=== PATIENT | male | born 1945 | race Caucasian/White ===

== ENCOUNTER 2017-06-25 10:44 | Inpatient (IN) | payer OTHER, MEDICARE ==
--- NOTE | 2017-06-25 10:40 | EDPHY ---
H & P Constitutional: Initial Vital Signs Temperature (C) 36.6 C 06/25/17 10:49 Heart Rate 100 06/25/17 10:49 Respiratory Rate 20 06/25/17 10:49 Blood Pressure 121/71 H 06/25/17 10:49 O2 Sat (%) 95 06/25/17 10:49 O2 Delivery Mode Room Air Allergies/Adverse Reactions: peanut [Peanut] Allergy (Severe, Verified 01/05/13 15:38) Anaphylaxis Shellfish *RETIRED-08/02/12 [Shellfish] Allergy (Severe, Verified 01/05/13 15:37 ) Anaphylaxis Home Medications: Medication Instructions Recorded Albuterol [Proventil Inhaler HFA 2 puffs IH BID PRN 03/17/12 (*)] Aspirin [Aspirin 81mg (*)] 81 mg PO DAILY 03/17/12 Glucosam/Chondr/Collagn/Hyalur 1 each PO DAILY 03/17/12 [Glucosamine & Chondroitin Cap] Losartan/Hctz 50/12.5 [Hyzaar 2 tab PO DAILY 03/17/12 50/12.5MG (*)] Lysine [l-Lysine] 500 mg PO DAILY 03/17/12 Multivitamins [Multivitamin (*)] 1 each PO DAILY 03/17/12 Omeprazole [Prilosec 20 mg] 20 mg PO DAILY 03/17/12 Pharmacy Completed 03/17/12 03/17/12 Ubidecarenone [Co Q10] 60 mg PO DAILY 03/17/12 Medical Decision Making ED Course/Re-evaluation: CHIEF COMPLAINT: Weakness, dizziness, hypotension. HISTORY OF PRESENT ILLNESS: The patient is a 72-year-old male who presents via EMS for hypotension, weakness, and lightheadedness. He reports that he was recently put on Amlodipine and took doses Thursday, Thursday, and Thursday and then fainted around 8pm Thursday. He was too weak and lightheaded to get up and was on the floor for 10 hours. Since then he has been unable to get off of his couch due to weakness, dizziness, and confusion. He admits associated hematuria. His blood pressure for EMS was 90/60. He denies recent sickness, fever, vomiting, diarrhea, or other complaints. REVIEW OF SYSTEMS: A 10 point review of systems was performed and is negative with the exception of the elements mentioned in the history of present illness. PHYSICAL EXAM: HR, BP, O2 Sat, RR. Temp noted General Appearance: Alert, well hydrated, appropriate, and non-toxic appearing. Head: Atraumatic without scalp tenderness or obvious injury Eyes: Pupils equal, round, reactive to light and accommodation, EOMI, no trauma , no injection. Ears: Clear bilaterally, no perforation, normal landmarks Nose: Atraumatic, no rhinorrhea, clear. Throat: There is no erythema or exudates, no lesions, normal tonsils, mucus membranes moist. Neck: Supple, 2+ carotid upstroke, nontender, no lymphadenopathy. Respiratory: No retractions, no distress, no wheezes, and no accessory muscle use. Lungs are clear to auscultation bilaterally. Cardiovascular: Regular rate and rhythm, no murmurs, rubs, or gallops. Bilateral carotid, radial, dorsalis pedis, and posterior tibial pulses intact. Good capillary refill all extremities. Gastrointestinal: Abdomen is soft, nontender, non-distended, no masses, no rebound, no guarding, no peritoneal signs. Musculoskeletal: Normal active ROM of all extremities, atraumatic. Neurological: Alert, appropriate, and interactive. The patient has normal DTRs and non-focal cranial nerves, motor, sensory, and cerebellar exam. Skin: No rashes, good turgor, no nodules on palpation. Past medical history: Hypertension. Past surgical history: Family history: N/A. Social history: Lives at home alone. DIAGNOSTICS/PROCEDURES/CRITICAL CARE TIME: I spent a total of 40 minutes of critical care time including but not limited to obtaining history, performing a physical exam, ordering interventions and the bedside monitoring of those interventions, collecting and interpreting tests and discussion with consultants but not including time spent performing procedures. DIFFERENTIAL DIAGNOSIS: The differential diagnosis for the patient's dizziness included but was not limited to peripheral and central causes of vertigo, orthostatic causes including dehydration, cardiogenic and neurogenic causes, and blood loss. MEDICAL DECISION MAKIN-year-old male with a history of hypertension presents for 4 days of weakness , confusion, and lightheadedness. He took 3 doses of Amlodipine this weekend and then passed out for 10 hours on his floor. He has been too weak to move from his cough since then. I am concerned for CVA, cerebellar infarct, rhabdomyolysis, or possible BPV. An IV was established and labs ordered including cardiac enzymes and CK. Brain MRI without contrast ordered to rule out intracranial process. 1L IV saline administered for hydration. I reviewed the patient's laboratory studies. Creatinine is markedly elevated at 5.9, indicating renal failure secondary to rhabdomyolysis. CK elevated at 2950. Hospitalist and test fixture designer paged. 1152: Reassessed patient. Discussed results of workup so far and answered all of his questions. 1159: Consulted with Dr. Pitts, hospitalist. He accepts admission. 1202: Consulted with Dr. Horne, nephrology. Critical Care Time: I spent a total of 40 minutes of critical care time including but not limited to obtaining history, performing a physical exam, ordering interventions and the bedside monitoring of those interventions, collecting and interpreting tests and discussion with consultants but not including time spent performing procedures. - Data Points Laboratory Results: Laboratory Results 06/25/17 10:55 06/25/17 10:55 06/25/17 06/25/17 06/25/17 11:00 10:55 10:55 WBC RBC Hgb Hct MCV MCH MCHC RDW Plt Count MPV Neut % (Auto) Lymph % (Auto) Avery % (Auto) Eos % (Auto) Baso % (Auto) Nucleat RBC Rel Count Absolute Neuts (auto) Absolute Lymphs (auto) Absolute Monos (auto) Absolute Eos (auto) Absolute Basos (auto) Absolute Nucleated RBC Immature Gran % Immature Gran # Sodium 137 mEq/L mEq/L (134-144) Potassium 3.1 mEq/L L mEq/L (3.5-5.2) Chloride 102 mEq/L mEq/L (97-110) Carbon Dioxide 17 mEq/l L mEq/l (22-31) Anion Gap 18 mEq/L H mEq/L (8-16) BUN 87 mg/dL H mg/dL (7-23) Creatinine 5.9 mg/dL H mg/dL (0.7-1.3) Estimated GFR 10 Glucose 126 mg/dL H mg/dL (70-100) Calcium 9.7 mg/dL mg/dL (8.5-10.4) Magnesium 1.7 mg/dL mg/dL (1.6-2.3) Total Bilirubin 3.4 mg/dL H mg/dL (0.1-1.4) Conjugated Bilirubin 2.2 mg/dL H mg/dL (0.0-0.5) Unconjugated Bilirubin 1.2 mg/dL H mg/dL (0.0-1.1) AST 180 IU/L H IU/L (17-59) ALT 80 IU/L H IU/L (21-72) Alkaline Phosphatase 186 IU/L H IU/L (38-126) Creatine Kinase 2950 IU/L H IU/L (0-224) CK-MB (CK-2) Fraction 3.92 ng/mL H ng/mL (0-3.19) CK-MB (CK-2) % 0.1 % % (0.0-4.0) Creatine Kinase Interp NEGATIVE (NEGATIVE) Troponin I < 0.012 ng/mL ng/mL (0-0.034) Total Protein 7.7 g/dL g/dL (6.3-8.2) Albumin 3.2 g/dL L g/dL (3.5-5.0) Lipase 1938.0 IU/L H IU/L (23-300) Hep Bs Antigen Pending Hep Bs Antibody Pending Hepatitis C Antibody Pending 06/25/17 10:55 WBC 11.69 10^3/uL H 10^3/uL (3.80-9.50) RBC 4.01 10^6/uL L 10^6/uL (4.40-6.38) Hgb 14.0 g/dL g/dL (13.7-17.5) Hct 38.8 % L % (40.0-51.0) MCV 96.8 fL fL (81.5-99.8) MCH 34.9 pg H pg (27.9-34.1) MCHC 36.1 g/dL g/dL (32.4-36.7) RDW 15.1 % % (11.5-15.2) Plt Count 146 10^3/uL L 10^3/uL (150-400) MPV 12.3 fL H fL (8.7-11.7) Neut % (Auto) 79.8 % H % (39.3-74.2) Lymph % (Auto) 9.5 % L % (15.0-45.0) Avery % (Auto) 5.0 % % (4.5-13.0) Eos % (Auto) 4.1 % % (0.6-7.6) Baso % (Auto) 0.7 % % (0.3-1.7) Nucleat RBC Rel Count 0.0 % % (0.0-0.2) Absolute Neuts (auto) 9.33 10^3/uL H 10^3/uL (1.70-6.50) Absolute Lymphs (auto) 1.11 10^3/uL 10^3/uL (1.00-3.00) Absolute Monos (auto) 0.59 10^3/uL 10^3/uL (0.30-0.80) Absolute Eos (auto) 0.48 10^3/uL H 10^3/uL (0.03-0.40) Absolute Basos (auto) 0.08 10^3/uL 10^3/uL (0.02-0.10) Absolute Nucleated RBC 0.00 10^3/uL 10^3/uL (0-0.01) Immature Gran % 0.9 % % (0.0-1.1) Immature Gran # 0.10 10^3/uL 10^3/uL (0.00-0.10) Sodium Potassium Chloride Carbon Dioxide Anion Gap BUN Creatinine Estimated GFR Glucose Calcium Magnesium Total Bilirubin Conjugated Bilirubin Unconjugated Bilirubin AST ALT Alkaline Phosphatase Creatine Kinase CK-MB (CK-2) Fraction CK-MB (CK-2) % Creatine Kinase Interp Troponin I Total Protein Albumin Lipase Hep Bs Antigen Hep Bs Antibody Hepatitis C Antibody Medications Given: Discontinued Medications Sodium Chloride (Ns) 1,000 mls @ 0 mls/hr IV ONCE ONE; Wide Open PRN Reason: Protocol Stop: 06/25/17 10:53 Last Admin: 06/25/17 11:05 Dose: 1,000 mls Departure - Departure Disposition: [facility] Acute Clinical Impression: Kidney failure Qualifiers: Renal failure chronicity: acute Acute renal failure type: unspecified Qualified Code(s): N17.9 - Acute kidney failure, unspecified Rhabdomyolysis Qualifiers: Rhabdomyolysis type: non-traumatic Qualified Code(s): M62.82 - Rhabdomyolysis Condition: Fair Report Scribed for: Garret Hollingsworth Report Scribed by: Pravin Benjamin Date of Report: 06/25/17 Time of Report: 10:50
[2017-06-25] MEDS ORDERED: NS 1,000 ML IV ONE (10:52)
[2017-06-25 11:09] LABS: % IMMATURE GRANULYOCYTES 0.9 % (0.0-1.1); ADD DIFF? NO; ADD MORPH? NO; ADD SCAN? NO; ATYPICAL LYMPHOCYTE FLAG 20 (0-99); FRAGMENT RBC FLAG 0 (0-99); HEMATOCRIT 38.8 % (40.0-51.0); LEFT SHIFT FLG 20 (0-99); LIPEMIA HEMOLYSIS FLAG 90 (0-99); MEAN CELL HEMOGLOBIN 34.9 pg (27.9-34.1); MEAN CELL HEMOGLOBIN CONCENTR. 36.1 g/dL (32.4-36.7); MEAN CELL VOLUME 96.8 fL (81.5-99.8); MEAN PLATELET VOLUME 12.3 fL (8.7-11.7); PLATELET CLUMPS FLAG 0 (0-99); PLATELET COUNT 146 10^3/uL (150-400); RED BLOOD CELL COUNT 4.01 10^6/uL (4.40-6.38); RED CELL DISTRIBUTION WIDTH 15.1 % (11.5-15.2)
[2017-06-25 11:23] LABS: ANION GAP 18 mEq/L (8-16); CALCIUM 9.7 mg/dL (8.5-10.4); CARBON DIOXIDE 17 mEq/l (22-31); CHLORIDE 102 mEq/L (97-110); CREATININE 5.9 mg/dL (0.7-1.3); GLOMERULAR FILTRATION RATE 10; GLUCOSE 126 mg/dL (70-100); MAGNESIUM 1.7 mg/dL (1.6-2.3); POTASSIUM 3.1 mEq/L (3.5-5.2); SODIUM 137 mEq/L (134-144)
[2017-06-25 11:31] LABS: TROPONIN I < 0.012 ng/mL (0-0.034)
[2017-06-25 11:53] LABS: CK-MB INTERPRETATION NEGATIVE (NEGATIVE); CREATINE KINASE-MB FRACTION 3.92 ng/mL (0-3.19)
[2017-06-25 11:58] LABS: ALBUMIN 3.2 g/dL (3.5-5.0); BILIRUBIN,TOTAL 3.4 mg/dL (0.1-1.4); BILIRUBIN-CONJUGATED 2.2 mg/dL (0.0-0.5); BILIRUBIN-UNCONJUGATED 1.2 mg/dL (0.0-1.1); TOTAL PROTEIN 7.7 g/dL (6.3-8.2)
[2017-06-25] MEDS ORDERED: ONDANSETRON 4 MG/2 ML VIAL ONE (12:59)
[2017-06-25 14:04] LABS: HEPATITIS B SURFACE ANTIBODY NEGATIVE (NEGATIVE)
[2017-06-25] MEDS ORDERED: ONDANSETRON 4 MG/2 ML VIAL IVP PRN (14:11)
[2017-06-25] MEDS ORDERED: ACETAMINOPHEN 325 MG TAB PO PRN (14:11)
[2017-06-25] MEDS ORDERED: ZOLPIDEM TARTRATE 5 MG TAB PO PRN (14:11)
--- NOTE | 2017-06-25 14:28 | PDGENHP ---
History and Physical History and Physical: HISTORY AND PHYSICAL CC: Weak unable to stand and walk HISTORY: this man comes into the emergency room today complaining of being too weak to stand or walk. He states that 6 days ago he started taking some Norvasc for blood pressure in addition to other blood pressure medicines. 4 days ago he says he had a fall and landed on the floor was unable to get up from the floor and stayed approximately 10 hours on the floor. This is a hard floor without carpet. He eventually crawled to a couch where he spent almost the entirety of the last 4 days. He has had little to eat or drink. He does admit to some pain at his left shoulder and his left hip as well as lumbar back but no radicular sound neuropathic pain. He says he is unable to stand or walk and mostly it sounds like this is due to weakness, and is difficult to determine whether the pain he has in his hip or back has anything to do with his inability to walk. He denies any fever symptoms, shortness of breath, chest pain, headache, confusion, Nausea vomiting or diarrhea. Denies abdominal pain Notably on review of the patient's chart he is been an alcoholic in the past. He had quit drinking and was sober although was admitted here in 2011 after drinking a significant amount of wine and essentially passing out. at this time he tells me he has not had any alcohol for a few months ROS: A comprehensive 10 system review revealed no other significant findings PAST MEDICAL HISTORY: alcoholism Syncope reactive airway disease hypertension Rheumatic fever as a child 1 episode of acute kidney failure it sounds like it was probably mild but it did not have details FAMILY MEDICAL HISTORY: he denies any significant family history SOCIAL HISTORY: he lives in [facility] He lives by himself in a private house. He is no longer to his who was with him when he was here 5 years ago MEDICATIONS: The patients list has been reconciled by our clinical pharmacist in the EMR. I have reviewed the list and ordered appropriate medicines. PHYSICAL EXAMINATION: Vital Signs: normal without fever, however he has borderline orthostatic blood pressure changes Advertising Copywriter: sinus rhythm Examination: General: alert, oriented, good mentation, relaxed Skin: warm, dry, slight pallor, no rash HEENT: normal Neck: no mass or jvd Resps: relaxed Lungs: clear breath sounds Heart: regular, no murmur Abdomen: soft, nondistended, nontender, +BS, no mass Upper Extremities: some decreased range of motion of left shoulder due to pain , with no bruising or effusion or inflammation there, otherwise normal Lower Extremities: also some decreased range of motion of the left hip due to pain but no other findings there, otherwise no edema, warm No Bleeding or bruising Neurologic: normal speech/language, 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 These labs were also normal when last measured in 2011 potassium 3.1 RADIOLOGY STUDIES: abdominal ultrasound, I was present will this study was being done and did review the images tech and have reviewed the radiology report: Gallstones are present but no signs of cholecystitis or biliary obstruction are seen. There is some evidence of hepatitis. There is no evidence of hydronephrosis though there is some thinning of the renal cortices. Left hip x-ray, my review of image and interpretation: No evidence of fracture or other acute abnormality Left shoulder x-ray my review of images and interpretation: no evidence of fracture or other acute abnormality 12 LEAD EKG: ASSESSMENT: # profound weakness unable to stand or walk # acute renal failure, uncertain etiology, likely due to rhabdomyolysis but also likely some hemodynamic compromise # acute rhabdomyolysis from lying on the floor for prolonged. # ?acute pancreatitis however there is no pain or tenderness, question possible alcohol abuse; it is possible that he has an elevated lipase due to his acute renal disease and not pancreatitis He does have gallstones which could also be a cause of pancreatitis ( at present he is denying recent alcohol use) # hepatitis, question possible alcohol related with AST greater than ALT, ( at present he is denying recent alcohol use) # multiple painful sites after a recent fall to the floor 4 days ago, including left shoulder, left hip, with no fracture seen on x-rays # known history of alcoholism with patient currently stating no alcohol for months. PLANS: -Dr. Jamie Lawton has been consulted to see the patient from nephrology -aggressive IV hydration -will hold his diuretics and Amilcar inhibitors for now -avoid any nephrotoxins -renal diet, avoid potassium supplements and magnesium -fall risk precautions -physical occupational therapy -DVT prophylaxis -will not be able to image pancreas with CT at this time -will give thiamin I have reviewed the patient's case in detail with Dr. SOLIS I have reviewed the patient's past medical records as part of this assessment, including previous hospitalization records here as well as outpatient laboratory studies
[2017-06-25] MEDS ORDERED: ALBUTEROL 60 PUFFS/8 GM MDI IH PRN (16:13)
[2017-06-25 18:17] LABS: ALBUMIN 2.9 g/dL (3.5-5.0); ANION GAP 18 mEq/L (8-16); CALCIUM 8.7 mg/dL (8.5-10.4); CARBON DIOXIDE 11 mEq/l (22-31); CHLORIDE 109 mEq/L (97-110); CREATININE 4.8 mg/dL (0.7-1.3); GLOMERULAR FILTRATION RATE 12; GLUCOSE 118 mg/dL (70-100); POTASSIUM 3.7 mEq/L (3.5-5.2); SODIUM 138 mEq/L (134-144)
[2017-06-25 19:47] LABS: EOSMR EOSINOPHILS FEW EOS (NO EOS SEEN); EOSMR EPITHELIAL CELLS NO EPITH CELLS SEEN; EOSMR PMNS MODERATE PMN CELLS; EOSMR RBCS MANY RBCS
--- NOTE | 2017-06-25 20:07 | GCON ---
[f rep st] CONSULTATION DATE OF CONSULTATION: 06/25/2017 REASON FOR CONSULTATION: Opinion regarding acute kidney injury. HISTORY OF PRESENT ILLNESS: Patient is a very pleasant, 72-year-old gentleman with no prior history of kidney disease, serum creatinine dating back to 2011 was 0.8. Patient has a known history of hyp ertension and has been on losartan with hydrochlorothiazide 100/25, for about 10-15 years. Patient saw his primary care physician, Dr. Burton, last week. His blood pressures have been high a nd was started on, he believes, amlodipine 5 mg daily. The 1st day he was little bit dizzy, on the 2 nd day, it was worse, the 3rd day he could barely move and fell and laid on his floor for about 12 h ours. He has been on the couch for 3 days subsequently with weakness and fatigue. He did continue to take his losartan with hydrochlorothiazide. He presents to the emergency department today feeling fairly terrible. He has not been having fevers , chills, nausea, vomiting, chest pain, shortness of breath, cough, sputum, hemoptysis, hematemesis, epistaxis, abdominal pain, diarrhea, melena, hematochezia, gross hematuria, or dysuria. He does not use nonsteroidal anti-inflammatory drugs. PAST MEDICAL HISTORY: Significant for: 1. Hypertension for 10 or 15 years. 2. History of gastrointestinal bleed due to Celebrex therapy. 3. Multiple back surgeries. 4. Osteoarthritis. 5. Gastroesophageal reflux disease. ALLERGIES: None. MEDICATIONS: Include: 1. Losartan with hydrochlorothiazide 100/25. 2. Omeprazole 20 mg a day. 3. Recently amlodipine 5 mg was added. He has not taken that since Thursday. FAMILY HISTORY: Negative for renal disease and diabetes, positive for hypertension. SOCIAL HISTORY: He is a . He has no children or pets and does not use tobacco. Stopped drink ing alcohol several months ago. No IV or recreational drugs. REVIEW OF SYSTEMS: A complete 12-point review of systems was performed with pertinent positives and negatives as per the previous sections. PHYSICAL EXAMINATION: VITAL SIGNS: Blood pressure in the emergency department is 121/71, pulse 100, respirations 20, temp 36.6 degrees, weight 84 kg. GENERALLY: He is awake, alert, but feels weak. HE ENT: Pupils are reactive to light. Extraocular movements are intact. Mucous membranes are dry. NECK: No lymphadenopathy or thyromegaly. HEART: Regular. No rub. No S3. LUNGS: No rales, rhonchi or wheez es. ABDOMEN: Bowel sounds are positive. Soft, nontender, nondistended. No obvious organomegaly, mass es or bruits. EXTREMITIES: No edema, cyanosis or clubbing. NEUROLOGIC: No asterixis. SKIN: No unusua l rashes. LYMPH: No palpable lymphadenopathy. MUSCULOSKELETAL: No effusions or tenderness. LABORATORY: Serum sodium is 137, potassium 3.1, chloride 102, CO2 17, BUN 87, creatinine 5.9, gluco se 126, calcium 9.7, magnesium 1.7. WBC 11.7, hemoglobin 14, hematocrit 39, platelet count 146,000, AST 180, ALT 80, CK 2950, albumin 3.2, lipase is elevated at 1938. IMPRESSION: 1. Acute kidney injury. This is likely due to a combination of hypotension, volume depletion and rh abdomyolysis. 2. Rhabdomyolysis CK, 3 days after he got off the floor was still almost 3000. 3. Mild hypokalemia. 4. Mild metabolic acidosis. 5. History of alcohol use/abuse. 6. Elevated lipase. RECOMMENDATIONS: 1. Continue his IV fluids with normal saline at 150 mL/hour. 2. Follow his CPK levels. 3. Follow his renal function. 4. There are no urgent indications for dialysis at this time. 5. We did discuss dialysis with its attendant risks, and benefits, all questions were answered to h is satisfaction. He would proceed if necessary. 6. We will check an ultrasound of his retroperitoneum. His lipase is elevated and had some kidney f ailure. Would make sure he does not have an obstruction. Thank you for allowing me to participate in the care of your patient. If there are any questions, pl ease do not hesitate to contact us. We will be following along with you. /[id number]/MODL
[2017-06-25] MEDS ORDERED: NS 500 ML IV ONE (20:11)
[2017-06-25 20:42] LABS: % IMMATURE GRANULYOCYTES 0.8 % (0.0-1.1); ABSOLUTE IMMATURE GRANULOCYTES 0.08 10^3/uL (0.00-0.10); ADD DIFF? NO; ADD MORPH? NO; ADD SCAN? NO; ATYPICAL LYMPHOCYTE FLAG 10 (0-99); FRAGMENT RBC FLAG 0 (0-99); HEMOGLOBIN 12.5 g/dL (13.7-17.5); LEFT SHIFT FLG 20 (0-99); LIPEMIA HEMOLYSIS FLAG 90 (0-99); MEAN CELL HEMOGLOBIN 35.2 pg (27.9-34.1); MEAN CELL HEMOGLOBIN CONCENTR. 36.8 g/dL (32.4-36.7); MEAN CELL VOLUME 95.8 fL (81.5-99.8); MEAN PLATELET VOLUME 12.7 fL (8.7-11.7); PLATELET CLUMPS FLAG 0 (0-99); PLATELET COUNT 123 10^3/uL (150-400); RED BLOOD CELL COUNT 3.55 10^6/uL (4.40-6.38)
[2017-06-25 20:53] LABS: COLOR YELLOW; LEUKOCYTE ESTERASE,URINE NEGATIVE (NEGATIVE); NITRITE,URINE NEGATIVE (NEGATIVE)
[2017-06-25 21:05] LABS: MUCUS TRACE /lpf (NONE-1+); RBC,URINE 15-25 /hpf (0-3)
[2017-06-25] MEDS: HEPARIN 5,000 UNIT/0.5 ML SYR SC SCH (21:41)
[2017-06-25] MEDS ORDERED: ERTAPENEM 0.5 GM in NS 50 ML IV ONE (22:17)
[2017-06-25] MEDS: NS 1,000 ML IV SCH (22:21)
--- NOTE | 2017-06-25 22:25 | HOSPPROG ---
Hospitalist Progress Note Assessment/Plan: Called with sepsis trigger, temp 100.5, HR 110's. CT abd/pelvis without contrast did not reveal significant inflammation to suggest pancreatitis as source of his low grade fever and tachycardia. Bolused 500 cc's NS. Repeated labs. PCT 4.2, Lactate 2.8. UA has wbc's and rbc's. CXR pending. -Will obtain UCx, BCx and give dose of Ertapenem tonight as his imaging doesn 't seem to support pancreatitis as a source of his SIRS, ?UTI Objective: Vital Signs Temp Pulse Resp BP Pulse Ox 38.1 C 109 H 16 120/67 91 L 06/25/17 19:32 06/25/17 19:32 06/25/17 19:32 06/25/17 19:32 06/25/17 19:32 Laboratory Results 06/25/17 20:25 06/25/17 17:35 06/24/17 06/25/17 06/26/17 05:59 05:59 05:59 Intake Total 1900 Output Total 200 Balance 1700 ICD10 Worksheet Patient Problems: Problems Problem Status Onset Kidney failure Acute Rhabdomyolysis Acute
[2017-06-26 05:19] LABS: % IMMATURE GRANULYOCYTES 0.9 % (0.0-1.1); ABSOLUTE IMMATURE GRANULOCYTES 0.06 10^3/uL (0.00-0.10); ADD DIFF? NO; ADD MORPH? NO; ADD SCAN? NO; ATYPICAL LYMPHOCYTE FLAG 20 (0-99); FRAGMENT RBC FLAG 0 (0-99); HEMOGLOBIN 11.4 g/dL (13.7-17.5); LEFT SHIFT FLG 20 (0-99); LIPEMIA HEMOLYSIS FLAG 90 (0-99); MEAN CELL HEMOGLOBIN 34.5 pg (27.9-34.1); MEAN CELL HEMOGLOBIN CONCENTR. 35.6 g/dL (32.4-36.7); MEAN PLATELET VOLUME 12.4 fL (8.7-11.7); PLATELET CLUMPS FLAG 10 (0-99); PLATELET COUNT 103 10^3/uL (150-400); RED CELL DISTRIBUTION WIDTH 15.2 % (11.5-15.2)
[2017-06-26] MEDS: NS 1,000 ML IV SCH (05:38)
[2017-06-26] MEDS: HEPARIN 5,000 UNIT/0.5 ML SYR SC SCH ×3 (05:38→21:49)
[2017-06-26 05:39] LABS: ALANINE AMINOTRANSFERASE 63 IU/L (21-72); ALBUMIN 2.2 g/dL (3.5-5.0); ALKALINE PHOSPHATASE 136 IU/L (38-126); ANION GAP 10 mEq/L (8-16); ASPARTATE AMINOTRANSFERASE 101 IU/L (17-59); BILIRUBIN,TOTAL 2.6 mg/dL (0.1-1.4); BILIRUBIN-CONJUGATED 1.6 mg/dL (0.0-0.5); CALCIUM 8.3 mg/dL (8.5-10.4); CARBON DIOXIDE 17 mEq/l (22-31); CHLORIDE 109 mEq/L (97-110); CREATININE 3.6 mg/dL (0.7-1.3); GLOMERULAR FILTRATION RATE 17; GLUCOSE 108 mg/dL (70-100); POTASSIUM 2.8 mEq/L (3.5-5.2); SODIUM 136 mEq/L (134-144); TOTAL PROTEIN 5.7 g/dL (6.3-8.2)
[2017-06-26 06:29] LABS: CK-MB INTERPRETATION NEGATIVE (NEGATIVE); CREATINE KINASE-MB FRACTION 1.98 ng/mL (0-3.19)
[2017-06-26] MEDS ORDERED: POTASSIUM CL 20 MEQ TAB PO ONE ×3 (06:38→14:17)
[2017-06-26] MEDS ORDERED: POTASSIUM CL 20 MEQ TAB PO SCH (06:45)
[2017-06-26] MEDS ORDERED: NON-FORMULARY NEW DRUG (Omeprazole [Prilosec 20 Mg] 20 MG) PO SCH (09:00)
--- NOTE | 2017-06-26 09:14 | HOSPPROG ---
Hospitalist Progress Note Assessment/Plan: DIAGNOSES: # profound weakness unable to stand or walk # acute renal failure, uncertain etiology, likely due to rhabdomyolysis but also likely some hemodynamic compromise # acute rhabdomyolysis from lying on the floor for prolonged time # ?acute pancreatitis however there is no pain or tenderness, question possible alcohol abuse; it is possible that he has an elevated lipase due to his acute renal disease and not pancreatitis He does have gallstones which could also be a cause of pancreatitis ( at present he is denying recent alcohol use) # hepatitis, question possible alcohol related with AST greater than ALT, ( at present he is denying recent alcohol use) # multiple painful sites after a recent fall to the floor 4 days ago, including left shoulder, left hip, with no fracture seen on x-rays # known history of alcoholism with patient currently stating no alcohol for past few months. PLANS: -continue IV hydration -Follow renal function closely -continue low-fat diet as tolerated -continue empiric antibiotics for the moment with cultures pending -DVT prophylaxis -fall risk precautions and physical occupational therapy SUBJECTIVE: States he feels better today No abdominal pain or nausea No chills or sweats this morning Slight cough but not short of breath and no chest pain OBJECTIVE Vitals reviewed: Fever to 38.1 last evening has currently resolved, some tachycardia with the fever has resolved, blood pressure is slightly low this morning Exam: alert oriented skin warm dry color ok resps not labored lungs clear BSs heart regular abd soft nondistended nontender, bowel sounds present limbs warm, no edema iv site ok Laboratory data: Some improvement in renal function, bilirubin and transaminases, and lipase Potassium low at 2.7 I reviewed the chest x-ray images from last night, my personal reading: Normal single-view chest x-ray I reviewed the CT scan images from last night, abdomen, my personal reading: Objective: Vital Signs Temp Pulse Resp BP Pulse Ox 36.7 C 81 16 93/49 L 97 06/26/17 07:37 06/26/17 07:37 06/26/17 07:37 06/26/17 07:37 06/26/17 07:37 Laboratory Results 06/26/17 05:02 06/26/17 05:02 06/25/17 06/26/17 06/27/17 06:59 06:59 06:59 Intake Total 3900 Output Total 800 Balance 3100 ICD10 Worksheet Patient Problems: Problems Problem Status Onset Kidney failure Acute Rhabdomyolysis Acute
[2017-06-26] MEDS: PANTOPRAZOLE SODIUM 40 MG TAB PO SCH (09:48)
[2017-06-26] MEDS: THIAMINE HCL 100 MG TAB PO SCH (09:48)
--- NOTE | 2017-06-26 11:28 | SOAPPROG ---
SOAP Progress Note Assessment/Plan: Assessment/Plan: NETTA: likely from hypotension, volume depletion and rhabdomyolysis, Cr down with IVFs from 5.9 to 3.6 in one day. - No need for dialysis. - Continue IVFs. - Will continue to monitor. - Avoid nephrotoxins and hypotension. Hypokalemia: K 2.8 this am, got KCl 40meq x1. Will recheck this afternoon as he will likely need further replacement. Metabolic acidosis: CO2 17, will continue to monitor, expect it will improve with IVFs and improvement in renal function. Subjective: No acute events overnight. Pt states he feels better, more energy, more alert. He states he is breathing comfortably, not having any swelling, denies pain. Objective: Vital Signs Temp Pulse Resp BP Pulse Ox 36.6 C 79 20 95/84 H 97 06/26/17 11:14 06/26/17 11:14 06/26/17 11:14 06/26/17 11:14 06/26/17 11:14 Laboratory Results 06/26/17 05:02 06/26/17 05:02 06/25/17 06/26/17 06/27/17 05:59 05:59 05:59 Intake Total 3900 Output Total 800 Balance 3100 General: alert and oriented, no acute distress Eyes; EOMI, PERRL OP: Clear CV: RRR Resp: CTA bilat, nonlabored respirations on NC Abd; SOft, NT Ext: no edema BLE Neuro: CN II-XII grossly intact, no asterixis Psych: cooperative, appropriate mood and affect ICD10 Worksheet Patient Problems: Problems Problem Status Onset Kidney failure Acute Rhabdomyolysis Acute
[2017-06-26 13:45] LABS: ALBUMIN 2.6 g/dL (3.5-5.0); ANION GAP 12 mEq/L (8-16); CALCIUM 8.5 mg/dL (8.5-10.4); CARBON DIOXIDE 17 mEq/l (22-31); CHLORIDE 108 mEq/L (97-110); CREATININE 3.1 mg/dL (0.7-1.3); GLOMERULAR FILTRATION RATE 20; GLUCOSE 117 mg/dL (70-100); POTASSIUM 2.8 mEq/L (3.5-5.2); SODIUM 137 mEq/L (134-144)
[2017-06-26 18:46] LABS: ALBUMIN 2.5 g/dL (3.5-5.0); ANION GAP 12 mEq/L (8-16); CALCIUM 8.4 mg/dL (8.5-10.4); CARBON DIOXIDE 17 mEq/l (22-31); CHLORIDE 111 mEq/L (97-110); CREATININE 2.7 mg/dL (0.7-1.3); GLOMERULAR FILTRATION RATE 23; GLUCOSE 111 mg/dL (70-100); POTASSIUM 3.3 mEq/L (3.5-5.2); SODIUM 140 mEq/L (134-144)
[2017-06-26] MEDS: ALBUTEROL 200 PUFFS/18 GM MDI IH PRN (21:31)
[2017-06-26] MEDS ORDERED: POTASSIUM CL 10 MEQ TAB PO ONE (23:15)
[2017-06-27] MEDS: NS 1,000 ML IV SCH ×3 (00:46→15:52)
[2017-06-27 05:51] LABS: % IMMATURE GRANULYOCYTES 1.5 % (0.0-1.1); ABSOLUTE IMMATURE GRANULOCYTES 0.09 10^3/uL (0.00-0.10); ADD DIFF? NO; ADD MORPH? NO; ADD SCAN? NO; ATYPICAL LYMPHOCYTE FLAG 30 (0-99); FRAGMENT RBC FLAG 0 (0-99); HEMATOCRIT 32.7 % (40.0-51.0); HEMOGLOBIN 11.6 g/dL (13.7-17.5); LEFT SHIFT FLG 10 (0-99); LIPEMIA HEMOLYSIS FLAG 90 (0-99); MEAN CELL HEMOGLOBIN 34.9 pg (27.9-34.1); MEAN CELL HEMOGLOBIN CONCENTR. 35.5 g/dL (32.4-36.7); MEAN CELL VOLUME 98.5 fL (81.5-99.8); MEAN PLATELET VOLUME 12.3 fL (8.7-11.7); PLATELET CLUMPS FLAG 0 (0-99); PLATELET COUNT 121 10^3/uL (150-400); RED BLOOD CELL COUNT 3.32 10^6/uL (4.40-6.38); RED CELL DISTRIBUTION WIDTH 15.7 % (11.5-15.2)
[2017-06-27] MEDS: HEPARIN 5,000 UNIT/0.5 ML SYR SC SCH ×3 (06:08→21:12)
[2017-06-27 06:14] LABS: ALBUMIN 2.2 g/dL (3.5-5.0); ANION GAP 11 mEq/L (8-16); CALCIUM 8.4 mg/dL (8.5-10.4); CARBON DIOXIDE 16 mEq/l (22-31); CHLORIDE 114 mEq/L (97-110); CREATININE 2.1 mg/dL (0.7-1.3); GLOMERULAR FILTRATION RATE 31; GLUCOSE 89 mg/dL (70-100); POTASSIUM 3.4 mEq/L (3.5-5.2); SODIUM 141 mEq/L (134-144)
[2017-06-27] MEDS: THIAMINE HCL 100 MG TAB PO SCH (08:06)
[2017-06-27] MEDS: PANTOPRAZOLE SODIUM 40 MG TAB PO SCH (08:06)
[2017-06-27] MEDS ORDERED: POTASSIUM CL 20 MEQ/15 ML UDCUP PO ONE (12:27)
--- NOTE | 2017-06-27 12:32 | SOAPPROG ---
SOAP Progress Note Assessment/Plan: Assessment: 1. NETTA: likely from hypotension, volume depletion and rhabdomyolysis -Cr improving rapidly with IVFs - No need for dialysis. - Continue IVFs. Will lower rate to 75cc/hr and likely can d/c tomorrow as he has good PO intake - Avoid nephrotoxins and hypotension. 2. Hypokalemia: Improving with replacement, got 80mEq yesterday, will give 20mEq now 3. Metabolic acidosis: CO2 16, may be partly driven by NETTA but also from NS. Should improve as NETTA further resolves and can stop NS IVF Plan: 06/27/17 12:25 06/27/17 12:32 06/27/17 12:35 Subjective: Feels well. Notes good appetite and improving UOP. Objective: Vital Signs Temp Pulse Resp BP Pulse Ox 36.8 C 93 16 106/58 L 97 06/27/17 11:18 06/27/17 11:18 06/27/17 11:18 06/27/17 11:18 06/27/17 11:18 Microbiology 06/25/17 15:30 Urine Culture - Final Urine,Clean Catch One [place] Type Laboratory Results 06/27/17 05:04 06/27/17 05:04 06/26/17 06/27/17 06/28/17 05:59 05:59 05:59 Intake Total 3900 2750 1356 Output Total 800 300 600 Balance 3100 2450 756 ICD10 Worksheet Patient Problems: Problems Problem Status Onset Kidney failure Acute Rhabdomyolysis Acute
--- NOTE | 2017-06-27 16:50 | HOSPPROG ---
Hospitalist Progress Note Assessment/Plan: DIAGNOSES: # profound weakness unable to stand or walk due to abnormalities listed below # acute renal failure, likely due to rhabdomyolysis and hemodynamic compromise # acute rhabdomyolysis from lying on the floor for prolonged time # ?acute pancreatitis however there is no pain or tenderness, question possible alcohol abuse; it is possible that he has an elevated lipase due to his acute renal disease and not pancreatitis He does have gallstones which could also be a cause of pancreatitis ( at present he is denying recent alcohol use) # elevation of transaminases may been related to his rhabdomyolysis # multiple painful sites after a recent fall to the floor 4 days ago, including left shoulder, left hip, with no fracture seen on x-rays these are all resolving nicely # orthostatic hypotension persists despite ongoing IV hydration. Given his fall at home and no hypertension here would not resume his blood pressure medicines at home until follow-up with primary care doctor and he may not need them at this point all # fever and high procalcitonin at admission or of uncertain etiology. There is no infectious focus identified in cultures have remained negative. # known history of alcoholism with patient currently stating no alcohol for past few months. PLANS: -continue IV hydration; continue off Norvasc -Follow renal function closely -continue low-fat diet as tolerated - will stop antibiotics at this time and follow without -DVT prophylaxis -fall risk precautions and physical occupational therapy Disposition: Anticipate discharge tomorrow will be reasonable SUBJECTIVE: feels better overall, eating better, better strength and is ambulating somewhat now OBJECTIVE Vitals reviewed: no recurrent fever last 36 hours Vital signs at rest are very stable but he does still have some orthostatic vital sign changes Exam: alert oriented skin warm dry color ok resps not labored lungs clear BSs heart regular abd soft nondistended nontender, bowel sounds present limbs warm, no edema iv site ok Objective: Vital Signs Temp Pulse Resp BP Pulse Ox 36.6 C 106 H 20 107/73 96 06/27/17 15:10 06/27/17 15:10 06/27/17 15:10 06/27/17 15:10 06/27/17 15:10 Microbiology 06/25/17 15:30 Urine Culture - Final Urine,Clean Catch One [place] Type Laboratory Results 06/27/17 05:04 06/27/17 05:04 06/26/17 06/27/17 06/28/17 06:59 06:59 06:59 Intake Total 3900 3506 600 Output Total 929 260 4312 Balance 3100 3206 -400 ICD10 Worksheet Patient Problems: Problems Problem Status Onset Kidney failure Acute Rhabdomyolysis Acute
[2017-06-28] MEDS: HEPARIN 5,000 UNIT/0.5 ML SYR SC SCH (05:18)
[2017-06-28] MEDS: NS 1,000 ML IV SCH (05:22)
[2017-06-28 06:09] LABS: % IMMATURE GRANULYOCYTES 1.5 % (0.0-1.1); ABSOLUTE IMMATURE GRANULOCYTES 0.09 10^3/uL (0.00-0.10); ADD DIFF? NO; ADD MORPH? NO; ADD SCAN? NO; ATYPICAL LYMPHOCYTE FLAG 0 (0-99); FRAGMENT RBC FLAG 0 (0-99); HEMATOCRIT 31.1 % (40.0-51.0); LEFT SHIFT FLG 10 (0-99); LIPEMIA HEMOLYSIS FLAG 90 (0-99); MEAN CELL HEMOGLOBIN 35.1 pg (27.9-34.1); MEAN CELL HEMOGLOBIN CONCENTR. 35.4 g/dL (32.4-36.7); MEAN CELL VOLUME 99.4 fL (81.5-99.8); MEAN PLATELET VOLUME 12.2 fL (8.7-11.7); PLATELET CLUMPS FLAG 0 (0-99); PLATELET COUNT 126 10^3/uL (150-400); RED BLOOD CELL COUNT 3.13 10^6/uL (4.40-6.38); RED CELL DISTRIBUTION WIDTH 15.9 % (11.5-15.2)
[2017-06-28 06:23] LABS: ALBUMIN 2.2 g/dL (3.5-5.0); ANION GAP 9 mEq/L (8-16); CALCIUM 8.4 mg/dL (8.5-10.4); CARBON DIOXIDE 17 mEq/l (22-31); CHLORIDE 115 mEq/L (97-110); CREATININE 1.4 mg/dL (0.7-1.3); GLOMERULAR FILTRATION RATE 50; GLUCOSE 100 mg/dL (70-100); POTASSIUM 3.5 mEq/L (3.5-5.2); SODIUM 141 mEq/L (134-144)
[2017-06-28] MEDS: PANTOPRAZOLE SODIUM 40 MG TAB PO SCH (09:15)
[2017-06-28] MEDS: THIAMINE HCL 100 MG TAB PO SCH (09:15)
[2017-06-28] MEDS: ALBUTEROL 200 PUFFS/18 GM MDI IH PRN (09:21)
--- NOTE | 2017-06-28 11:03 | PDIAF ---
- Diagnosis Code Status: Full Code - Medication Management Discharge Medications: Medications to Continue on Transfer Albuterol [Proventil Inhaler HFA (*)] 2 puffs IH BID PRN 03/17/12 [Last Taken Unknown] Omeprazole [Prilosec 20 mg] 20 mg PO DAILY 03/17/12 [Last Taken 03/16/12] Baicalin/Catechin [Limbrel 500 mg Capsule] 500 mg PO BID 06/25/17 [Last Taken Unknown] Acetaminophen [Tylenol 325mg (*)] 650 mg PO Q4HRS PRN #0 tab 06/28/17 [Last Taken Unknown] Pediatric Np Antibiotics: n/a Discharge Medications: Refer to the Discharge Home Medication list for PRN reason. PICC Care - Routine: N/A - Orders Services needed: Registered Nurse, Master Client Hr Manager, Physical Therapy Home Care Face to Face: done 06/28/2017 Radha Eckert MD Oxygen: 1L night time use only (but lives in [place], so may need additional eval Diet Recommendation: no restrictions on diet Diet Texture: Regular Texture Diet Genao: Not applicable Activity/Weight Bearing Restrictions: per PT recommendations - Labs/Radiology BMP Date: 06/29/17 (call to Dr Richard Crooks/[facility]) - Follow Up Care Current Providers and Referrals: NONE *PRIMARY CARE P,. [Primary Care Provider] - As per Instructions Leann Burton MD [Doctor of Osteopathy] - 1-2 days Miky Palomino MD [Medical Doctor] - follow up in 2 weeks
[2017-06-28 11:27] LABS: % SATURATION 58 % (20-55); TOTAL IRON BINDING CAPACITY 139 ug/dL (260-490)
[2017-06-28 11:53] VITALS: BP 124/66; PULSE 86; RESP 16; TEMP 97.7; O2SAT 95
== END 2017-06-28 13:56 | disposition home health service (06) | DRG 683 ==
LOC: EDUNIT# → F3E 14:22
PROVIDERS: ADMIT Internal Medicine; ATTEND Family Medicine
DX: N17.9 Acute kidney failure, unspecified (principal); M62.82 Rhabdomyolysis; E86.9 Volume depletion, unspecified; I95.1 Orthostatic hypotension; R53.1 Weakness; E87.6 Hypokalemia; E87.2 Acidosis; I10 Essential (primary) hypertension; J45.909 Unspecified asthma, uncomplicated; F10.21 Alcohol dependence, in remission
CPT/HCPCS: 97110-GP; 97116-GP; 97161-GP; 97166-GO; 97530-GO; 97535-GO; G0472; G8978-GP-CJ; G8979-GP-CI; G8987-GO-CI; G8987-GO-CJ; G8988-GO-CH; G8989-GO-CH; J1335; J2405

== ENCOUNTER 2017-08-05 07:04 | Observation (INO) | payer OTHER, MEDICARE ==
[2017-08-05] MEDS ORDERED: LIDOCAINE 1% 2 ML INJ ID PRN (07:48)
[2017-08-05] MEDS ORDERED: NS 1,000 ML IV ONE (07:48)
--- NOTE | 2017-08-05 08:13 | PDANEPAE ---
ANE History of Present Illness 72 year old male presents for cholecystectomy. ANE Past Medical History - Cardiovascular History Hx Hypertension: Yes Hx Arrhythmias: No Hx Chest Pain: No Hx Coronary Artery / Peripheral Vascular Disease: No Hx CHF / Valvular Disease: No Hx Palpitations: No Cardiovascular History Comment: Losartan/HCTZ cut in half - Pulmonary History Hx COPD: No Hx Asthma/Reactive Airway Disease: Yes Hx Recent Upper Respiratory Infection: No Hx Oxygen in Use at Home: No Hx Sleep Apnea: No Sleep Apnea Screening Result - Last Documented: Positive Pulmonary History Comment: Albuterol -rare use for asthma - Neurologic History Hx Cerebrovascular Accident: No Hx Seizures: No Hx Dementia: No - Endocrine History Hx Diabetes: No Hypothyroid: No Hyperthyroid: No Obesity: no - Renal History Hx Renal Disorders: Yes Renal History Comment: acute renal failure -improving, after being given Amlodipine Besylate late May. - Liver History Hx Hepatic Disorders: Yes Hepatic History Comment: elevated liver enzymes, Pancreatitis-need for placido - Neurological & Psychiatric Hx Hx Neurological and Psychiatric Disorders: Yes Neurological / Psychiatric History Comment: neck and low back pain due to stenosis,arthrits. N/T radiating down arms and legs. Improving w/ Limbrel. - Cancer History Hx Cancer: No - Congenital Disorder History Hx Congenital Disorders: No - GI History GERD: severe Hx Gastrointestinal Disorders: Yes Gastrointestinal History Comment: Merlos's esophagus, hiatal hernia, diverticulosis - Other Health History Other Health History: L abd pain-intermittent. - Chronic Pain History Chronic Pain: No - Surgical History Prior Surgeries: lum lami's x2. L total knee. umbilical and inguinal hernia repair. re-do inguinal hernia ANE Review of Systems Review of Systems: - Exercise capacity Exercise capacity: >=4 METS METS (RN): 4 METS - Systems Muscolosketal: Reports: back pain ANE Patient History - Allergies Allergies/Adverse Reactions: peanut [Peanut] Allergy (Severe, Verified 07/31/17 11:06) Anaphylaxis Shellfish *RETIRED-08/02/12 [Shellfish] Allergy (Severe, Verified 07/31/17 11:06 ) Anaphylaxis NSAIDS (Non-Steroidal Anti-Inflamma Allergy (Verified 07/31/17 11:08) Other-Enter Comments - Home Medications Home medications: home medication list seen and reviewed Home Medications: RX: Albuterol [Proventil Inhaler HFA (*)] 2 puffs IH BID PRN 03/17/12 [Last Taken 07/26/17] RX: Omeprazole [Prilosec 20 mg] 20 mg PO DAILY 03/17/12 [Last Taken 08/04/17 10: 00] RX: Baicalin/Catechin [Limbrel 500 mg Capsule] 500 mg PO BID 06/25/17 [Last Taken 08/04/17 10:00] Losartan/Hydrochlorothiazide [Losartan-Hctz 50-12.5 mg Tab] 1 each PO DAILY 06/08 [Last Taken 08/04/17 10:00] - NPO status NPO Status: no food or drink >8 hours NPO Since - Liquids (Date): 08/04/17 NPO Since - Liquids (Time): 23:00 NPO Since - Solids (Date): 08/04/17 NPO Since - Solids (Time): 20:00 - Anes Hx Anes Hx: no prior problems - Smoking Hx Smoking Status: Never smoked - Family Anes Hx Family Anes Hx: neg - N/A ANE Labs/Vital Signs - Vital Signs Vital Signs: reviewed preoperatively; see RN documention for details Blood Pressure: 158/94 Heart Rate: 84 Respiratory Rate: 16 O2 Sat (%): 94 Height: 172.72 cm Weight: 80.286 kg ANE Physical Exam - Airway Neck exam: decreased ROM Mallampati Score: Class 2 Mouth exam: poor dentition, small mouth opening, byrd - Pulmonary Pulmonary: no respiratory distress - Cardiovascular Cardiovascular: regular rate and rhythym - ASA Status ASA Status: III ANE Anesthesia Plan Anesthesia Plan: general endotracheal anesthesia Total IV Anesthesia: No
[2017-08-05] MEDS ORDERED: LIDOCAINE 1% 300 MG/30 ML SDV ONE (08:32)
[2017-08-05] MEDS ORDERED: IOTHALAMATE MEG (CONRAY) 50 ML VIAL IV ONE (08:33)
[2017-08-05] MEDS ORDERED: BUPIVACAINE 0.5% 30 ML SDV ONE (08:33)
[2017-08-05] MEDS ORDERED: LR 1,000 ML IV ONE (08:36)
[2017-08-05] MEDS ORDERED: fentaNYL 100 MCG/2 ML INJ ONE ×2 (08:42→10:35)
[2017-08-05] MEDS ORDERED: ROCURONIUM 50 MG/5 ML VIAL ONE (08:43)
[2017-08-05] MEDS ORDERED: LIDOCAINE 2% 5 ML SDV ONE (08:43)
[2017-08-05] MEDS ORDERED: PROPOFOL 200 MG/20 ML VIAL ONE (08:43)
--- NOTE | 2017-08-05 08:44 | PDHPUP ---
History & Physical Update H&P update statement: This history and physical update is based on an assessment of the patient which was completed after admission or registration (within 24 hours), but prior to the surgery/procedure.
[2017-08-05] MEDS ORDERED: DEXAMETHASONE 4 MG/ML VIAL ONE (09:01)
[2017-08-05] MEDS ORDERED: ONDANSETRON 4 MG/2 ML VIAL ONE ×2 (09:01→10:15)
[2017-08-05] MEDS ORDERED: PHENYLEPHRINE HCL 100 MCG/ML SYR ONE (09:15)
[2017-08-05] MEDS ORDERED: LR 500 ML IV PRN (09:33)
[2017-08-05] MEDS ORDERED: fentaNYL 100 MCG/2 ML INJ IVP PRN (09:33)
[2017-08-05] MEDS ORDERED: NALOXONE HCL 0.4 MG/ML INJ IVP PRN (09:33)
[2017-08-05] MEDS ORDERED: ONDANSETRON 4 MG/2 ML VIAL IVP PRN ×2 (09:33→10:40)
[2017-08-05] MEDS ORDERED: HYDROmorphONE/DILAUDID 1 MG/ML INJ IVP PRN ×2 (09:33→10:40)
--- NOTE | 2017-08-05 10:37 | POSTOPPROG ---
Post Op Note Date of Operation: 08/05/17 Surgeon: Jose Ibrahim Lines Tender: Darlene Pitts Anesthesiologist: Arvind Johnson Anesthesia: GET(General Endotracheal) Pre-op Diagnosis: symptomatic cholelithiasis Post-op Diagnosis: same Procedure: Laparoscopic cholecystectomy with cholangiogram Findings: normal biliary tree, cirrhotic liver Inf/Abcess present in the surg proc area at time of surgery?: No Specimen(s): Gallbladder
[2017-08-05] MEDS ORDERED: TEMAZEPAM 15 MG CAP PO PRN (10:40)
[2017-08-05] MEDS ORDERED: METOCLOPRAMIDE 10 MG/2 ML VIAL IVP PRN (10:40)
[2017-08-05] MEDS ORDERED: HYDROmorphONE/DILAUDID 1 MG/ML INJ ONE (10:55)
--- NOTE | 2017-08-05 11:11 | POSTANESTH ---
Post Anesthetic Evaluation Cardiovascular Status: Normal, Stable, Similar to Pre-Op Cond Respiratory Status: Normal, Stable, Similar to Pre-op Cond. Level of Consciousness/Mental Status: Can Participate in Eval, Alert and Oriented Pain Control: Adequate, Prn Tx Ordered Nausea/Vomiting Control: Adequate, Prn Tx Ordered Complications Possibly Related to Anesthesia: None Noted
[2017-08-05] MEDS: oxyCODONE IR 5 MG TAB PO PRN ×3 (12:18→22:43)
[2017-08-05] MEDS ORDERED: ALBUTEROL 200 PUFFS/18 GM MDI IH PRN (13:45)
--- NOTE | 2017-08-05 14:36 | GOP ---
[f rep st] OPERATIVE REPORT DATE OF OPERATION: SURGEON: Jose Ibrahim MD RN PEDIATRIC: TROY Britt. The use of an refinery operator assistant is standard and required for this type of pro cedure. ANESTHESIA: General endotracheal anesthesia was used. SPECIMENS: Gallbladder to permanent pathology. ANESTHESIOLOGIST: Dr. Greg Johnson. PREOPERATIVE DIAGNOSIS: Choledocholithiasis. POSTOPERATIVE DIAGNOSIS: Choledocholithiasis. PROCEDURE PERFORMED: Laparoscopic cholecystectomy. FINDINGS: Normal intra and extrahepatic biliary tree and the radicles, without signs of filling defe cts. Easy spill of contrast into the duodenum. INDICATIONS: A 72-year-old gentleman, who has history of alcohol abuse and gallstones, presents with what appears to be choledocholithiasis. DESCRIPTION OF PROCEDURE: The patient was brought to the operating room. After induction of endotra cheal anesthesia in supine position, his abdomen was prepped with chlorhexidine, draped sterilely. T dolores-out procedure was then performed according to institutional standards. Local anesthetic was infu sed in skin and subcutaneous tissue, and open trocar placement was done in the epigastric area, as he has had previous umbilical incision. The abdomen was insufflated to 15 TOR with carbon dioxide. Wo rking trocars were placed into the subxiphoid and right subcostal areas under direct visualization. The gallbladder is identified, brought in the field of dissection. The liver appears mildly cirrhoti c with macronodular disease. The gallbladder is dissected at the level of the infundibulum. The cys tic duct and cystic artery are clearly defined in the triangle of Calot. The cystic artery was tripl y clipped and ligated. The duct was clipped once distally. Ductotomy is created using scissors and, through a separate stab incision, the cholangiocatheter was introduced and placed into the cystic du ct. The cholangiogram was performed under fluoroscopy, which shows no filling defects. Normal intra and extrahepatic biliary tree spillage into the duodenum. The cholangiogram being complete, the kayla t was cleared of the catheter and clipped twice proximally. The cystic duct was ligated, and the gal lbladder was then removed using electrocautery from the cystic plate. The area was completely hemost atic. No irrigation was performed. The gallbladder was removed through the umbilical incision, and the abdomen was inspected before removing the trocars and closing the fascia using 0 Vicryl. The por ts were approximated at the skin level using 4-0 Monocryl. Dermabond was applied. The patient awake graeme, extubated, taken to recovery room in stable condition. Needle, instrument, and sponge counts ve rified to be correct x2. No immediate complications. COMPLICATIONS: There were no complications. /[id number]/MODL
[2017-08-05] MEDS: [UNRECOGNIZED DRUG - OTHER] PO SCH (20:12)
[2017-08-06 08:05] VITALS: BP 121/70; PULSE 94; RESP 20; TEMP 98.5; O2SAT 90
[2017-08-06] MEDS: [UNRECOGNIZED DRUG - OTHER] PO SCH (08:14)
[2017-08-06] MEDS: oxyCODONE IR 5 MG TAB PO PRN ×2 (08:18→12:02)
[2017-08-06] MEDS ORDERED: LOSARTAN/HCTZ 50/12.5 1 TAB PO SCH (09:00)
[2017-08-06] MEDS ORDERED: PANTOPRAZOLE SODIUM 40 MG TAB PO SCH (09:00)
--- NOTE | 2017-08-06 17:29 | ASDISCHSUM ---
Discharge Information Plan Status:Home with No Needs Medically Cleared to Leave:08/06/2017 Discharge Date:08/06/2017 12:15 PM CM D/C Disposition:Home, Routine, Self-Care ADT D/C Disposition:Home, Routine, Self-Care Projected Discharge Date:08/06/2017 12:00 AM Transportation at D/C: Discharge Delay Reason: Follow-Up Date:08/06/2017 12:00 AM Discharge Slot: Final Diagnosis: Placement Information Patient Contact Information Contact Name:PTELSA Relationship: Address: Home Phone: Work Phone: City: Alternate Phone: State/CelluComp Code: Email: Financial Information Financial Class: Primary Plan Desc:MEDICARE OUTPATIENT Primary Plan Number:[id number] Secondary Plan Desc:[employer]/MDR SUPPLEMENT Secondary Plan Number:[id number] Assessment Information Intervention Information Intervention Type:*CHAN-Signed Date of Service:08/05/2017 12:40 PM Patient Type:Observation Staff Member:Sophia Alvarado Hours: Discipline: Severity: Comment:
== END 2017-08-06 12:15 | disposition home or self-care (01) ==
LOC: F3N 07:04 → F3E 11:18
PROVIDERS: ADMIT Surgery; ATTEND Surgery
PROC: BF101ZZ Fluoroscopy of Bile Ducts using Low Osmolar Contrast (ICD-10-PCS; principal; 2017-08-05 08:30)
PROC: 0FT44ZZ Resection of Gallbladder, Percutaneous Endoscopic Approach (ICD-10-PCS; principal; 2017-08-05 08:30)
DX: K80.10 Calculus of gallbladder with chronic cholecystitis without obstruction (principal); F10.21 Alcohol dependence, in remission; K74.60 Unspecified cirrhosis of liver
CPT/HCPCS: 47563; 76001; 88304; J1100; J1170; J2370; J2405; J2704; J3010; Q9961

== ENCOUNTER → 2017-09-22 | Outpatient (CLI) | payer OTHER, MEDICARE ==
[~2017-09-22] MED LIST: IOPAMIDOL (ISOVUE-300) 100 ML BTL ONE
== END ==
LOC: FIMAGING 14:48
PROVIDERS: ATTEND Specialist
DX: R31.29 Other microscopic hematuria (principal); R60.9 Edema, unspecified
CPT/HCPCS: 74178; Q9967

== ENCOUNTER → 2018-02-12 | Outpatient (CLI) | payer OTHER, MEDICARE | LOC: BMCIMAGING 14:12 | PROVIDERS: ATTEND Emergency Medicine | DX: R05 Cough (principal); J98.11 Atelectasis; I70.0 Atherosclerosis of aorta ==

== ENCOUNTER 2018-02-23 08:04 | Emergency (ER) | payer OTHER, MEDICARE ==
[2018-02-23 08:14] VITALS: BP 157/112; PULSE 97; RESP 16; TEMP 98.2; O2SAT 98
[2018-02-23] MEDS ORDERED: IPRATROPIUM/ALBUTEROL 3 ML DEYVIAL IH ONE (08:21)
--- NOTE | 2018-02-23 08:26 | EDPHY ---
H & P Stated Complaint: bilateral flank pain rad to frontal ribs for 3 weeks, been to urgent care Time Seen by Provider: 02/23/18 08:25 - Personal History Current Tetanus/Diphtheria Vaccine: Yes Current Tetanus Diphtheria and Acellular Pertussis (TDAP): Yes - Medical/Surgical History Hx Asthma: Yes Hx Chronic Respiratory Disease: No Hx Diabetes: No Hx Cardiac Disease: Yes Hx Renal Disease: No Hx Cirrhosis: No Hx Alcoholism: Yes Hx HIV/AIDS: No Hx Splenectomy or Spleen Trauma: No Other PMH: HTN, GERD, ETOH abuse in past, NETTA, pancreatitis, asthma - Social History Smoking Status: Never smoked Constitutional: Initial Vital Signs Temperature (C) 36.8 C 02/23/18 08:12 Heart Rate 97 02/23/18 08:12 Respiratory Rate 16 02/23/18 08:12 Blood Pressure 157/112 H 02/23/18 08:12 O2 Sat (%) 98 02/23/18 08:12 O2 Delivery Mode Room Air Allergies/Adverse Reactions: peanut [Peanut] Allergy (Severe, Verified 07/31/17 11:06) Anaphylaxis Shellfish *RETIRED-08/02/12 [Shellfish] Allergy (Severe, Verified 07/31/17 11:06 ) Anaphylaxis NSAIDS (Non-Steroidal Anti-Inflamma Allergy (Verified 07/31/17 11:08) Other-Enter Comments Home Medications: Medication Instructions Recorded Albuterol [Proventil Inhaler HFA 2 puffs IH BID PRN 03/17/12 (*)] Omeprazole [Prilosec 20 mg] 20 mg PO DAILY 03/17/12 Baicalin/Catechin [Limbrel 500 mg 500 mg PO BID 06/25/17 Capsule] Losartan/Hydrochlorothiazide 1 each PO DAILY 07/30/17 [Losartan-Hctz 50-12.5 mg Tab] oxyCODONE IR [Oxycodone Ir (*)] 5 - 10 mg PO Q6 PRN #20 tab 02/23/18 Medical Decision Making - Diagnostics Imaging Results: Imaging Impressions Chest X-Ray 02/23/18 08:19 Impression: More pronounced perihilar bronchitis, with interim development of some subsegmental atelectasis versus a mild lingular infiltrate since 02/12/2018. ED Course/Re-evaluation: clinically looks and feels good [address] CHIEF COMPLAINT: Chest pain, shortness of breath HISTORY OF PRESENT ILLNESS: The patient is a 72 y/o male complaining of chest pain and shortness of breath. Three weeks ago, he developed a cough. He was seen in urgent care and provided with codeine, inhaler, and antibiotics. He took all medications as directed but continued to have symptoms. He was again seen at urgent care. He was again provided codeine, an inhaler, and antibiotics. This morning, he developed chest pain. His chest pain is worse while coughing or deep breathing. He has associated shortness of breath, though this is ongoing and associated with his cold. EMS noted tachycardia, though he had just taken his inhaler on their arrival. In the ED, he has not signs of tachycardia. He denies any other associated symptoms. REVIEW OF SYSTEMS: A 10 point review of systems was performed and is negative with the exception of the elements mentioned in the history of present illness. PHYSICAL EXAM: HR, BP, O2 Sat, RR. Temp noted General Appearance: Alert, well hydrated, appropriate, and non-toxic appearing. Head: Atraumatic without scalp tenderness or obvious injury Eyes: Pupils equal, round, reactive to light and accommodation, EOMI, no trauma , no injection. Ears: Clear bilaterally, no perforation, normal landmarks Nose: Atraumatic, no rhinorrhea, clear. Throat: There is no erythema or exudates, no lesions, normal tonsils, mucus membranes moist. Neck: Supple, nontender, no lymphadenopathy. Respiratory: No retractions, no distress, no wheezes, and no accessory muscle use. Lungs are clear to auscultation bilaterally. Cardiovascular: Regular rate and rhythm, no murmurs, rubs, or gallops. Good capillary refill all extremities. Gastrointestinal: Abdomen is soft, nontender, non-distended, no masses, no rebound, no guarding, no peritoneal signs. Musculoskeletal: Normal active ROM of all extremities, atraumatic. Neurological: Alert, appropriate, and interactive. Skin: No rashes, good turgor, no nodules on palpation. Past medical history: Cough 3 weeks Past surgical history: Denies Family history: Non-contributory Social history: Lives in [place], [place], nonsmoker DIAGNOSTICS/PROCEDURES/CRITICAL CARE TIME: Study: PA and Lateral Chest X-ray Indication: Chest pain, cough Results: After viewing the images myself on the PACS system. My interpretation of the images is: bronchitis The radiologist interpretation is pending at the time of this dictation. DIFFERENTIAL DIAGNOSIS: The differential diagnosis for the patient's chest pain included but was not limited to myocardial ischemia, pulmonary embolus, chest wall pain, pleural inflammation, and pulmonary infectious causes. MEDICAL DECISION MAKING: The patient presents with chest pain and shortness of breath. He has had a cough treated with codeine, inhaler, and antibiotics twice now. He reports the chest pain is worse when coughing. His chest X-ray shows resolving bronchitis. Chest pain is likely due to chest wall pain from coughing. I feel he can be released with prescription for hydrocodone to control pain for a few days as he heals. The patient agrees to this course of action. Follow-up instructions and return precautions given. - Data Points Laboratory Results: Laboratory Results 02/23/18 08:19 02/23/18 08:15 02/23/18 02/23/18 08:19 08:15 WBC 7.34 10^3/uL 10^3/uL (3.80-9.50) RBC 4.61 10^6/uL 10^6/uL (4.40-6.38) Hgb 16.1 g/dL g/dL (13.7-17.5) Hct 46.0 % % (40.0-51.0) MCV 99.8 fL fL (81.5-99.8) MCH 34.9 pg H pg (27.9-34.1) MCHC 35.0 g/dL g/dL (32.4-36.7) RDW 15.5 % H % (11.5-15.2) Plt Count 88 10^3/uL L 10^3/uL (150-400) MPV 11.7 fL fL (8.7-11.7) Neut % (Auto) 72.7 % % (39.3-74.2) Lymph % (Auto) 13.6 % L % (15.0-45.0) Patrick % (Auto) 9.3 % % (4.5-13.0) Eos % (Auto) 3.1 % % (0.6-7.6) Baso % (Auto) 0.8 % % (0.3-1.7) Nucleat RBC Rel Count 0.0 % % (0.0-0.2) Absolute Neuts (auto) 5.33 10^3/uL 10^3/uL (1.70-6.50) Absolute Lymphs (auto) 1.00 10^3/uL 10^3/uL (1.00-3.00) Absolute Monos (auto) 0.68 10^3/uL 10^3/uL (0.30-0.80) Absolute Eos (auto) 0.23 10^3/uL 10^3/uL (0.03-0.40) Absolute Basos (auto) 0.06 10^3/uL 10^3/uL (0.02-0.10) Absolute Nucleated RBC 0.00 10^3/uL 10^3/uL (0-0.01) Immature Gran % 0.5 % % (0.0-1.1) Immature Gran # 0.04 10^3/uL 10^3/uL (0.00-0.10) Sodium 137 mEq/L mEq/L (135-145) Potassium 4.0 mEq/L mEq/L (3.5-5.2) Chloride 101 mEq/L mEq/L (97-110) Carbon Dioxide 25 mEq/l mEq/l (22-31) Anion Gap 11 mEq/L mEq/L (8-16) BUN 16 mg/dL mg/dL (7-23) Creatinine 0.7 mg/dL mg/dL (0.7-1.3) Estimated GFR > 60 Glucose 97 mg/dL mg/dL (70-100) Calcium 9.4 mg/dL mg/dL (8.5-10.4) NT-Pro-B Natriuret Pep 936 pg/mL H pg/mL (0-125) Medications Given: Discontinued Medications Albuterol/Ipratropium (Duoneb) 3 ml IH EDNOW ONE Stop: 02/23/18 08:22 Last Admin: 02/23/18 09:00 Dose: Not Given Departure - Departure Disposition: Home, Routine, Self-Care Clinical Impression: Chest wall pain Condition: Good Instructions: Chest Pain (ED), Chronic Cough (ED) Additional Instructions: 1. Take oxycodone as directed as needed for pain. 2. Follow up with your primary care provider for continued symptoms in 2 to 3 days. 3. Return to the emergency department for any worsening of condition. Referrals: Patient,NotPresent [Primary Care Provider] - As per Instructions Prescriptions: oxyCODONE IR [Oxycodone Ir (*)] 5 - 10 mg PO Q6 PRN #20 tab PRN Reason: Pain, Severe Report Scribed for: Garret Hollingsworth Report Scribed by: Jennifer Menendez Date of Report: 02/23/18 Time of Report: 10:55
[2018-02-23 08:38] LABS: PLATELET COUNT 88 10^3/uL (150-400)
== END 2018-02-23 09:05 | disposition home or self-care (01) ==
LOC: EDUNIT#
DX: R07.89 Other chest pain (principal); I10 Essential (primary) hypertension; J45.909 Unspecified asthma, uncomplicated; Z91.010 Allergy to peanuts

== ENCOUNTER → 2018-05-14 | Outpatient (CLI) | payer OTHER, MEDICARE | LOC: FIMAGING 09:09 | PROVIDERS: ATTEND Physician Assistant | DX: K76.0 Fatty (change of) liver, not elsewhere classified (principal); I70.0 Atherosclerosis of aorta; Z90.49 Acquired absence of other specified parts of digestive tract | CPT/HCPCS: 82390-90; 86255-90; 86334-90; 86704-90; 86708-90 ==

== ENCOUNTER → 2018-12-10 | Outpatient (CLI) | payer OTHER, MEDICARE | END | disposition home or self-care (01) | LOC: FIMAGING 09:05 | PROVIDERS: ATTEND Physician Assistant | DX: R93.2 Abnormal findings on diagnostic imaging of liver and biliary tract (principal); R16.1 Splenomegaly, not elsewhere classified ==

== ENCOUNTER → 2018-12-20 | Outpatient (CLI) | payer OTHER, MEDICARE ==
[~2018-12-20] MED LIST changes: +IOHEXOL 350mgI/ML (OMNIPAQUE) 150 ML BTL IV ONE; -IOPAMIDOL (ISOVUE-300) 100 ML BTL ONE
== END ==
LOC: FIMAGING 14:10
PROVIDERS: ATTEND Physician Assistant
DX: K70.30 Alcoholic cirrhosis of liver without ascites (principal)
CPT/HCPCS: 74160; Q9967